=== PATIENT | male | born 1940 | race Caucasian/White ===

== ENCOUNTER 2016-10-23 08:05 | Inpatient (IN) | payer MEDICARE, BC ==
[~2016-10-23] VITALS: Ht 177.8 cm; Wt 170.0 kg
[~2016-10-23 08:05] MED LIST: ALDACTONE25 MG PO; AMOX/K CLAV875 M1 PO; AUGMENTIN500 MG OR; AUGMENTIN500TAB PO; AVAPRO PO; AVAPRO75 MG PO; CEPHALEXIN500 MG OR; CEPHALEXIN500 MG PO; CYMBALTA30 MG PO; EC-NAPROSYN500 MG PO; FLEXERIL OR; FLEXERIL5 MG PO; GABAPENTIN300 MG PO; GLUCOPHAGE500 MG PO; HYDROCHLORO25 MG/TAB PO; HYDROCHLOROT25 MG OR; HYDROCO/APAP1 T11; LYRICA25 MG PO; METFORMIN500 MG PO; MUPIROCIN2 % EX; NABUMETONE; NABUMETONE750 MG PO; NEURONTIN; NEURONTIN300 MG PO; NORVASC2.5 MG PO; ROCEPHIN 2 GM2 GM IV; TRAVOPROST 0.004% OU; ULTRAM50 M1 PO; [UNRECOGNIZED DRUG - REMARK]
[2016-10-23 10:12] LABS: HEMATOCRIT 43.1 % (39.0-50.0); HEMOGLOBIN 14.6 g/dl (14.0-18.0); IMMATURE GRANULOCYTES 0.5 % (0.0-1.0); MEAN CELL VOLUME 98.2 fL CALC (80.0-100.0); MEAN CORPUSCULAR HGB 33.3 pG CALC (26.0-32.0); MEAN CORPUSCULAR HGB CONC 33.9 g/L CALC (32.0-36.0); NEUT# 5.67 thou/uL (1.82-7.42); RED BLOOD COUNT 4.39 mill/uL (4.70-6.10); RED CELL DISTRI WIDTH 14.2 % (11.5-15.5)
[2016-10-23 10:23] LABS: ALKALINE PHOSPHATASE 70 u/l (38-126); ANION GAP 14 (6-22 (CALC)); BILIRUBIN, TOTAL 0.5 mg/dL (0.0-1.4); BUN 24 mg/dL (8-23); BUN/CREATININE RATIO 23 (12-20 (CALC)); CALCIUM 9.2 mg/dL (8.4-10.2); CARBON DIOXIDE 28 mmol/l (22-30); CHLORIDE 104 mmol/l (95-108); CREATININE 1.1 mg/dL (0.7-1.3); GFR > 60 ML/MIN (>=60 (CALC)); GFR FOR AFR.AMER. > 60 ML/MIN (>=60 (CALC)); GLUCOSE 100 mg/dL (82-115); POTASSIUM 4.3 mmol/l (3.5-5.1); SGOT/AST 20 u/l (19-48); SGPT/ALT 29 u/l (11-66); SODIUM 142 mmol/l (137-146); TOTAL PROTEIN 7.7 g/dL (6.3-8.2)
[2016-10-23 10:36] LABS: MYOGLOBIN 134 ng/mL (0 - 121)
[2016-10-23 13:46] VITALS: BP 187/78
[2016-10-23 15:25] VITALS: BP 172/84
[2016-10-23 20:00] VITALS: BP 198/84
[2016-10-24 04:43] VITALS: BP 117/65
[2016-10-24 04:53] LABS: HEMATOCRIT 40.2 % (39.0-50.0); HEMOGLOBIN 13.8 g/dl (14.0-18.0); IMMATURE GRANULOCYTES 0.6 % (0.0-1.0); MEAN CELL VOLUME 96.9 fL CALC (80.0-100.0); MEAN CORPUSCULAR HGB 33.3 pG CALC (26.0-32.0); MEAN CORPUSCULAR HGB CONC 34.3 g/L CALC (32.0-36.0); NEUT# 11.39 thou/uL (1.82-7.42); RED BLOOD COUNT 4.15 mill/uL (4.70-6.10); RED CELL DISTRI WIDTH 13.7 % (11.5-15.5)
[2016-10-24 05:08] LABS: ALBUMIN 3.5 g/dL (3.2-5.0); ALKALINE PHOSPHATASE 54 u/l (38-126); ANION GAP 15 (6-22 (CALC)); BILIRUBIN, TOTAL 0.4 mg/dL (0.0-1.4); BUN 25 mg/dL (8-23); BUN/CREATININE RATIO 26 (12-20 (CALC)); CALCULATED LDLCHOLESTEROL 125 mg/dL (62-129 (CALC)); CARBON DIOXIDE 26 mmol/l (22-30); CHLORIDE 102 mmol/l (95-108); CREATININE 0.9 mg/dL (0.7-1.3); GFR > 60 ML/MIN (>=60 (CALC)); GFR FOR AFR.AMER. > 60 ML/MIN (>=60 (CALC)); GLUCOSE 134 mg/dL (82-115); HDL CHOLESTEROL 36 mg/dL (>=40); POTASSIUM 4.8 mmol/l (3.5-5.1); SGOT/AST 17 u/l (19-48); SGPT/ALT 24 u/l (11-66); SODIUM 139 mmol/l (137-146); TOTAL CHOLESTEROL 200 mg/dl (0-199); TOTAL PROTEIN 6.6 g/dL (6.3-8.2); TOTAL TRIGLYCERIDES 193 mg/dl (30-149); VLDL CHOLESTROL 39 mg/dl (0-38 (CALC))
[2016-10-24 07:45] VITALS: BP 121/79
[2016-10-24 10:58] VITALS: BP 120/57
[2016-10-24 15:09] VITALS: BP 136/72
[2016-10-25 04:30] VITALS: BP 142/78
[2016-10-25 06:12] LABS: HEMATOCRIT 39.8 % (39.0-50.0); HEMOGLOBIN 13.4 g/dl (14.0-18.0); IMMATURE GRANULOCYTES 0.4 % (0.0-1.0); MEAN CELL VOLUME 97.5 fL CALC (80.0-100.0); MEAN CORPUSCULAR HGB 32.8 pG CALC (26.0-32.0); MEAN CORPUSCULAR HGB CONC 33.7 g/L CALC (32.0-36.0); NEUT# 8.32 thou/uL (1.82-7.42); RED BLOOD COUNT 4.08 mill/uL (4.70-6.10); RED CELL DISTRI WIDTH 13.9 % (11.5-15.5)
[2016-10-25 06:33] LABS: ANION GAP 13 (6-22 (CALC)); BUN 28 mg/dL (8-23); BUN/CREATININE RATIO 27 (12-20 (CALC)); CARBON DIOXIDE 27 mmol/l (22-30); CHLORIDE 103 mmol/l (95-108); GFR > 60 ML/MIN (>=60 (CALC)); GFR FOR AFR.AMER. > 60 ML/MIN (>=60 (CALC)); GLUCOSE 102 mg/dL (82-115); POTASSIUM 4.6 mmol/l (3.5-5.1); SODIUM 139 mmol/l (137-146)
[2016-10-25 07:25] VITALS: BP 155/82
[2016-10-25 11:24] VITALS: BP 147/70
[2016-10-25 15:21] VITALS: BP 133/74
[2016-10-26] VITALS: BP 102/77; BP 158/78
[2016-10-26 04:00] VITALS: BP 159/88
[2016-10-26] MEDS ORDERED: FLEXERIL5 M1 PO (08:21)
[2016-10-26] MEDS ORDERED: GLUCOPHAGE500 MG PO (08:23)
[2016-10-26] MEDS ORDERED: LOTRISONE CREAM15 G1 TOP (08:23)
[2016-10-26 08:26] VITALS: BP 142/55
[2016-10-26 08:30] VITALS: BP 142/55
[2016-10-26] MEDS ORDERED: LOSARTAN POT50 MG PO (08:30)
[2016-10-26] MEDS ORDERED: CLINDAMYCIN300 M1 PO (08:42)
[2016-10-26] MEDS ORDERED: LOTRISONE EX (08:42)
== END 2016-10-26 13:45 | disposition home health service (06) | DRG 638 ==
LOC: ENPENDDIS → ED 08:05 → ED-I 11:50 → ED 11:58 → MS2 11:59
PROVIDERS: Emergency Medicine; ADMIT Internal Medicine Geriatric Medicine; ATTEND Internal Medicine Geriatric Medicine
DX: E11.628 Type 2 diabetes mellitus with other skin complications (principal); L03.116 Cellulitis of left lower limb; L02.415 Cutaneous abscess of right lower limb; L02.416 Cutaneous abscess of left lower limb; Z68.43 Body mass index [BMI] 50.0-59.9, adult; L03.115 Cellulitis of right lower limb; E11.51 Type 2 diabetes mellitus with diabetic peripheral angiopathy without gangrene; E66.01 Morbid (severe) obesity due to excess calories; E11.42 Type 2 diabetes mellitus with diabetic polyneuropathy; I25.10 Atherosclerotic heart disease of native coronary artery without angina pectoris; I10 Essential (primary) hypertension; L30.4 Erythema intertrigo; M17.10 Unilateral primary osteoarthritis, unspecified knee; B95.61 Methicillin susceptible Staphylococcus aureus infection as the cause of diseases classified elsewhere
CPT/HCPCS: J1650